=== PATIENT | female | born 1990 | race Caucasian/White ===

== ENCOUNTER 2019-05-06 19:28 | Emergency (ER) | payer OTHER ==
[~2019-05-06] VITALS: Ht 152.4 cm; Wt 54.4 kg
[2019-05-06 20:30] VITALS: BP 112/58
[2019-05-06] MEDS ORDERED: METH-37 PO (21:06)
[2019-05-06] MEDS ORDERED: NAPR-514 PO (21:06)
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
[2019-05-06] MEDS ORDERED: KETOROLAC 60 MG/2 ML VIAL. IM ONE (21:30)
[2019-05-06] MEDS ORDERED: ORPHENADRINE CITRATE 60 MG/2 ML VIAL. IM ONE (21:30)
== END 2019-05-06 21:22 | disposition home or self-care (01) ==
LOC: ER 19:28
DX: S29.012A Strain of muscle and tendon of back wall of thorax, initial encounter (principal); S16.1XXA Strain of muscle, fascia and tendon at neck level, initial encounter; V43.52XA Car driver injured in collision with other type car in traffic accident, initial encounter; Y93.89 Activity, other specified; Y92.410 Unspecified street and highway as the place of occurrence of the external cause; Y99.8 Other external cause status
CPT/HCPCS: 96372; 99284; J1885; J2360; 96374